=== PATIENT | male | born 1960 | race Caucasian/White ===

== ENCOUNTER 2017-01-02 08:43 | Inpatient (IN) | payer BC ==
[2017-01-01 10:28] LABS: BASOPHILS 0.3 %; BASOPHILS ABSOLUTE 0.05 10/3/uL (0.0-0.16); EOSINOPHILS 0.3 %; EOSINOPHILS ABSOLUTE 0.04 10/3/uL (0.0-0.53); HEMATOCRIT 44.7 % (40.0-51.0); HEMOGLOBIN 15.2 g/dL (13.6-17.8); IMMATURE GRANULOCYTES 0.6 %; IMMATURE GRANULOCYTES ABSOLUTE 0.09 10/3/uL (0.0-0.11); LYMPHOCYTES 15.5 %; LYMPHOCYTES ABSOLUTE 2.26 10/3/uL (0.67-4.30); MEAN CORPUSCULAR HEMOGLOB 29.5 pg (26.0-34.0); MEAN CORPUSCULAR VOLUME 86.6 fL (80-100); MONOCYTES 5.9 %; MONOCYTES ABSOLUTE 0.86 10/3/uL (0.21-1.20); NEUTROPHILS 77.4 %; NEUTROPHILS ABSOLUTE 11.28 10/3/uL (2.02-8.40); PLATELET COUNT 211 10/3/uL (150-400); RBC DISTRIBUTION WIDTH 15.3 % (12.0-16.0); RED CELL COUNT 5.16 10/6/uL (4.7-6.1); WHITE BLOOD CELLS 14.6 10/3/uL (4.5-10.5)
[2017-01-01 10:29] LABS: MANUAL DIFF NO %
[2017-01-01 10:37] LABS: INTERNATIONAL NORMAL RATI 1.2 UNITS (-)
[2017-01-01 10:46] LABS: A/G RATIO 1.1 (0.7-1.9); ALBUMIN 3.9 G/DL (3.5-5.0); ALKALINE PHOSPHATASE 157 U/L (45-117); BUN (BLOOD UREA NITROGEN) 7 MG/DL (6-23); CALCIUM, SERUM 9.1 MG/DL (8.5-10.4); CHLORIDE, SERUM 105 MMOL/L (96-112); CO2 (CARBON DIOXIDE) 25 MMOL/L (24-34); CREATININE 1.24 MG/DL (0.70-1.30); GFR AFRICAN AMERICAN 76 ML/MIN (>=60); GFR NON AFRICAN AMERICAN 65 ML/MIN (>=60); GLOBULIN 3.5 G/DL (2.5-4.1); GLUCOSE, SERUM 162 MG/DL (60-99); POTASSIUM, SERUM 3.9 MMOL/L (3.5-5.3); SGOT(AST) 12 U/L (5-40); SGPT(ALT) 15 U/L (5-65); SODIUM, SERUM 139 MMOL/L (135-148); TOTAL BILIRUBIN 0.5 MG/DL (0-1.2); TOTAL PROTEIN 7.4 G/DL (6.0-8.5)
--- NOTE | ~2017-01-02 | OP ---
Record Of Operation [facility] [address] [place]. [address] NAME: WU JORDAN : 64 STATUS : ADM IN PAT#: [id number] AGE: 56 ADM/REG DATE : 01/02/17 MR#: [id number] REPORT SERV DATE: 01/02/17 DICTATED BY: KAYE BOURGEOIS JR. DATE: 01/02/17 REPORT STATUS : Draft TRANSCRIBED BY: MODDiogo DATE: 01/02/17 DATE OF PROCEDURE: 01/02/2017 PREOPERATIVE DIAGNOSES: Impacted foreign body, right lower lobe, bipolar disorder, chronic obstructive pulmonary disease, and hepatitis C. POSTOPERATIVE DIAGNOSES: Impacted foreign body, right lower lobe, bipolar disorder, chronic obstructive pulmonary disease, and hepatitis C. NAME OF OPERATION: Bronchoscopy, bronchioalveolar lavage, right lower lobe, right posterolateral thoracotomy, distal bronchus intermedius bronchotomy, with retrieval of impacted foreign body, irrigation and debridement of right lower lobe bronchus, primary closure of bronchus, and intercostal nerve block. RESIDENT SURGEON: Wu Solomon MD ASSURANCE AUDITOR: Rody Funes. ANESTHESIA: General endotracheal. FINDINGS: On bronchoscopy, the patient was noted to have an impacted pushpin in the right lower lobe bronchus. There was a significant amount of pus coming from this airway in the lower lobe around this pushpin. This was lavaged and sent for cultures. There was no way to retrieve this bronchoscopically. I felt this may require a thoracotomy. We then placed a left-sided double-lumen endotracheal tube. Where the patient was then positioned in the left lateral decubitus position. The right chest was prepped and draped in routine sterile fashion. Standard posterolateral thoracotomy incision was then made with dissection carried down into the sixth intercostal space. The ribs were spread, but not fractured. The bronchus intermedius was then dissected out. There was extremely large subcarinal lymph node that was obstructing our pathway. We resected this lymph node, and sent it for cultures and to pathology. It was likely reactive. The right lower lobe was then dissected off the distal bronchus intermedius. A transverse bronchotomy was then made opening the airway. There was a fair amount of pus. The pushpin initially could not be seen, but it had migrated further distally. We were able to get it back to the opening of the right lower lobe where we could grab it with an instrument and retrieved from the bronchus. There was a lot of granulation tissue and reaction around this pushpin. Once the pushpin was removed, a large amount of pus came out from the airway. This was sent for cultures. The airway was then lavaged with an irrigation catheter. The bronchus was debrided. It was then closed with multiple interrupted Vicryl sutures. The reinforcing suture of 4-0 PDS was also used. The soft tissue was then reapproximated around the bronchus. It was then placed back to its normal location. The chest was then thoroughly irrigated with multiple liters of normal saline solution. A 32-Romanian chest tube was placed. An intercostal nerve block was performed. The lung was reinflated noting all three lobes to be inflating normally. We then closed the chest with #2 Vicryl sutures. Holes were drilled on the inferior rib. The muscular layers were closed running Vicryl sutures. The skin was closed with running monofilament suture. A Dermabond dressing was applied. The procedure was terminated at Record Of Operation [address] [address] NAME: WU JORDAN : 64 STATUS : ADM IN PAT#: [id number] AGE: 56 ADM/REG DATE : 01/02/17 MR#: [id number] REPORT SERV DATE: 01/02/17 DICTATED BY: KAYE BOURGEOIS JR. DATE: 01/02/17 REPORT STATUS : Draft TRANSCRIBED BY: THAO DATE: 01/02/17 this point. The patient tolerated the procedure well and taken back to recovery room in stable condition. TRISTEN/THAO Kaye Bourgeois Jr., M.D. / [id number] CC: Kelsy Mazariegos Jr., M.D.
[~2017-01-02 08:43] MED LIST: GEODON80 PO; PROVHFA INH; QVAR80 MCG INH; SPIRIVA INH; XANAX1 MG PO; ZOL100 PO
[2017-01-03 05:17] LABS: BASOPHILS 0.1 %; BASOPHILS ABSOLUTE 0.02 10/3/uL (0.0-0.16); EOSINOPHILS 0 %; HEMATOCRIT 43.7 % (40.0-51.0); HEMOGLOBIN 14.2 g/dL (13.6-17.8); IMMATURE GRANULOCYTES 0.5 %; IMMATURE GRANULOCYTES ABSOLUTE 0.09 10/3/uL (0.0-0.11); LYMPHOCYTES 11.6 %; LYMPHOCYTES ABSOLUTE 1.94 10/3/uL (0.67-4.30); MANUAL DIFF NO %; MEAN CORPUS HGB CONC 32.5 g/dL (32.0-36.0); MEAN CORPUSCULAR VOLUME 89.4 fL (80-100); MEAN PLATELET VOLUME 10.5 fL (9.2-13.0); MONOCYTES 7.7 %; MONOCYTES ABSOLUTE 1.29 10/3/uL (0.21-1.20); NEUTROPHILS 80.1 %; NEUTROPHILS ABSOLUTE 13.39 10/3/uL (2.02-8.40); PLATELET COUNT 196 10/3/uL (150-400); RBC DISTRIBUTION WIDTH 15.3 % (12.0-16.0); RED CELL COUNT 4.89 10/6/uL (4.7-6.1); WHITE BLOOD CELLS 16.7 10/3/uL (4.5-10.5)
[2017-01-03 05:27] LABS: BUN (BLOOD UREA NITROGEN) 9 MG/DL (6-23); CALCIUM, SERUM 8.6 MG/DL (8.5-10.4); CHLORIDE, SERUM 105 MMOL/L (96-112); CO2 (CARBON DIOXIDE) 29 MMOL/L (24-34); CREATININE 1.23 MG/DL (0.70-1.30); GFR AFRICAN AMERICAN 77 ML/MIN (>=60); GFR NON AFRICAN AMERICAN 66 ML/MIN (>=60); GLUCOSE, SERUM 118 MG/DL (60-99); POTASSIUM, SERUM 4.4 MMOL/L (3.5-5.3); SODIUM, SERUM 140 MMOL/L (135-148)
[2017-01-04 04:37] LABS: BASOPHILS 0.2 %; BASOPHILS ABSOLUTE 0.02 10/3/uL (0.0-0.16); HEMATOCRIT 40.1 % (40.0-51.0); HEMOGLOBIN 12.9 g/dL (13.6-17.8); IMMATURE GRANULOCYTES 0.9 %; IMMATURE GRANULOCYTES ABSOLUTE 0.09 10/3/uL (0.0-0.11); LYMPHOCYTES 16.5 %; MEAN CORPUS HGB CONC 32.2 g/dL (32.0-36.0); MEAN CORPUSCULAR HEMOGLOB 28.7 pg (26.0-34.0); MEAN CORPUSCULAR VOLUME 89.1 fL (80-100); MEAN PLATELET VOLUME 10.8 fL (9.2-13.0); MONOCYTES 7.4 %; MONOCYTES ABSOLUTE 0.72 10/3/uL (0.21-1.20); NEUTROPHILS ABSOLUTE 7.15 10/3/uL (2.02-8.40); PLATELET COUNT 178 10/3/uL (150-400); RBC DISTRIBUTION WIDTH 15.5 % (12.0-16.0)
[2017-01-04 04:39] LABS: MANUAL DIFF NO %; WHITE BLOOD CELLS 9.7 10/3/uL (4.5-10.5)
[2017-01-04 04:54] LABS: BUN (BLOOD UREA NITROGEN) 8 MG/DL (6-23); CALCIUM, SERUM 8.5 MG/DL (8.5-10.4); CHLORIDE, SERUM 103 MMOL/L (96-112); CO2 (CARBON DIOXIDE) 29 MMOL/L (24-34); GFR AFRICAN AMERICAN 98 ML/MIN (>=60); GFR NON AFRICAN AMERICAN 85 ML/MIN (>=60); GLUCOSE, SERUM 102 MG/DL (60-99); POTASSIUM, SERUM 3.8 MMOL/L (3.5-5.3); SODIUM, SERUM 139 MMOL/L (135-148)
[2017-01-04] MEDS ORDERED: BAC PO (11:14)
[2017-01-04] MEDS ORDERED: PCET PO (11:16)
== END 2017-01-04 12:31 | disposition home or self-care (01) | DRG 163 ==
LOC: SDC/OF 08:43 → 5NO 16:45
PROVIDERS: Nurse Practitioner Acute Care; Thoracic Surgery (Cardiothoracic Vascular Surgery)
PROC: 0B9F8ZX Drainage of Right Lower Lung Lobe, Via Natural or Artificial Opening Endoscopic, Diagnostic (ICD-10-PCS; 2017-01-02)
PROC: 0BJ08ZZ Inspection of Tracheobronchial Tree, Via Natural or Artificial Opening Endoscopic (ICD-10-PCS; 2017-01-02)
PROC: 3E0T3BZ Introduction of Anesthetic Agent into Peripheral Nerves and Plexi, Percutaneous Approach (ICD-10-PCS; principal; 2017-01-02 10:15)
PROC: 0BC Respiratory System, Extirpation (ICD-10-PCS; 2017-01-02 10:15)
DX: T17.808A Unspecified foreign body in other parts of respiratory tract causing other injury, initial encounter (principal); J85.2 Abscess of lung without pneumonia; J44.9 Chronic obstructive pulmonary disease, unspecified; F31.9 Bipolar disorder, unspecified; B19.20 Unspecified viral hepatitis C without hepatic coma; F17.210 Nicotine dependence, cigarettes, uncomplicated
CPT/HCPCS: 36415; 71020; 80048; 80053; 82962; 85025; 85610; 86850; 86900; 86901; 87015; 87070; 87075; 87077; 87102; 87116; 87186; 87205; 87641; 88300; 88305; 88341; 88342; 93005; 94640; A9270-GY; J0690; J1885; J2250; J2370; J2405; J2710; J2795; J3010